=== PATIENT | female | born 1955 | race Caucasian/White ===

== ENCOUNTER → 2018-01-26 | Outpatient (CLI) | payer OTHER, SELFPAY ==
[~2018-01-26] MED LIST: ACET325 PO; Albuterol2.5 MG/0.5 INH; BENMENLOZ PO; BENZ100A PO; CEFP200 PO; Culturelle1 CAP PO; DOCU100 PO; DOXY100T53 PO; FIBER PO; FLUC100 PO; GUAIFENESIN-CODE5 ML PO; HYDR1TAB94 PO; HYDROCODONE; LEVO750 PO; LIDOCAINE HCL 2% PO; LORA.5 PO; METF500 PO; Mucinex600 MG PO; Norco 5-325 Ta1 EACH PO; OMEPRAZOLE MAGN20 MG PO; Omeprazole20 M1 PO; PROBIOTIC1 EAC3 PO; QUET100 PO; TRAZ100 PO
[2018-01-27 10:59] LABS: Candida species (DNA Probe) Negative (NEGATIVE); G. vaginalis (DNA Probe) Negative (NEGATIVE); T. vaginalis (DNA Probe) Negative (NEGATIVE)
== END ==
LOC: LAB 15:00 → LAB SHORT 15:00
PROVIDERS: Family Medicine
DX: N89.8 Other specified noninflammatory disorders of vagina (principal)
CPT/HCPCS: 87480; 87510; 87660

== ENCOUNTER → 2018-02-16 | Outpatient (CLI) | payer OTHER, SELFPAY | END | disposition home or self-care (01) | LOC: LAB SHORT 13:02 → PLD 13:02 | DX: D06.0 Carcinoma in situ of endocervix (principal); D06.1 Carcinoma in situ of exocervix | CPT/HCPCS: 88305 ==

== ENCOUNTER → 2019-04-25 | Outpatient (CLI) | payer MEDICARE, BC ==
[~2019-04-25] MED LIST changes: +Hair, Skin & N1 EACH PO; +IBUP800 PO; +METF850 PO; +PRAV20 PO; +Prozac20 MG PO; +QUET300 PO
[2019-04-29 14:06] LABS: HPV 16 Negative (Negative); HPV 18 Negative (Negative); HPV OTHER HR TYPES Negative (Negative)
== END | disposition home or self-care (01) ==
LOC: LAB 10:30 → LAB SHORT 10:30
PROVIDERS: Obstetrics & Gynecology
DX: Z09 Encounter for follow-up examination after completed treatment for conditions other than malignant neoplasm (principal); Z87.410 Personal history of cervical dysplasia
CPT/HCPCS: 87624; G0123

== ENCOUNTER → 2019-08-11 | Outpatient (CLI) | payer MEDICARE, BC ==
[2019-08-11 09:46] LABS: BASOPHILS ABSOLUTE AUTO 0.01 K/mm3 (0.00-0.23); BASOPHILS PERCENT AUTO 0 % (0-2); EOSINOPHILS ABSOLUTE AUTO 0.02 K/mm3 (0.00-0.68); EOSINOPHILS PERCENT AUTO 0 % (0-6); Hemoglobin 12.5 g/dL (11.5-16.0); IMMATURE GRAN ABSOLUTE AUTO 0.01 K/mm3 (0.00-0.10); IMMATURE GRAN PERCENT AUTO 0 % (0-1); LYMPHOCYTES ABSOLUTE AUTO 1.39 K/mm3 (0.84-5.20); LYMPHOCYTES PERCENT AUTO 20 % (21-46); MONOCYTES ABSOLUTE AUTO 0.56 K/mm3 (0.16-1.47); MONOCYTES PERCENT AUTO 8 % (4-13); Mean Corpuscular HGB 30.2 pg (26.0-34.0); Mean Corpuscular HGB Conc 31.3 g/dL (31.5-36.5); Mean Corpuscular Volume 97 fL (80-100); Mean Platelet Volume 9.7 fL (9.1-12.4); NEUTROPHILS ABSOLUTE AUTO 4.89 K/mm3 (1.96-9.15); NEUTROPHILS PERCENT AUTO 71 % (41-73); Platelet Count 127 K/mm3 (150-400); RDW Coefficient Variation 18.7 % (11.7-14.2); RDW Standard Deviation 66.4 fL (35.1-46.3); Red Blood Cell Count 4.14 M/mm3 (3.80-5.20); White Blood Cell Count 6.88 K/mm3 (4.00-11.30)
== END | disposition home or self-care (01) ==
LOC: LAB SHORT 08:45 → LAB 08:45
PROVIDERS: Emergency Medicine
DX: M54.2 Cervicalgia (principal); R50.9 Fever, unspecified
CPT/HCPCS: 85025

== ENCOUNTER → 2020-05-05 | Outpatient (CLI) | payer MEDICARE, BC ==
[2020-05-06 15:08] LABS: HPV 16 Negative (Negative); HPV 18 Negative (Negative); HPV OTHER HR TYPES Negative (Negative)
== END | disposition home or self-care (01) ==
LOC: OLS 10:00 → LAB SHORT 10:00
PROVIDERS: Obstetrics & Gynecology
DX: Z01.419 Encounter for gynecological examination (general) (routine) without abnormal findings (principal)
CPT/HCPCS: 87624; G0123

== ENCOUNTER 2020-06-17 06:38 | Day surgery (SDC) | payer MEDICARE, BC ==
[~2020-06-17] VITALS: Ht 154.9 cm; Wt 83.1 kg
[~2020-06-17 06:38] MED LIST changes: +AMLO5 PO; +Cymbalta20 MG PO; +METO25ER PO; +OMEP20ER PO; +Pravastatin Sod80 MG PO
--- NOTE | 2020-06-17 10:48 | NUR ---
11 CC OF AIR REMOVED OVER 10 MIN FROM NOW DEFLATED RIGHT TR BAND SITE. RIGHT RADIAL SITE SOFT NON-TENDER WITH NO HEMATOMA, NO PULSATILE BLEEDING AND WRIST BOARD IN PLACE. CALL LIGHT IN REACH.
--- NOTE | 2020-06-17 10:54 | NUR ---
NO CHANGES TO DEFLATED RIGHT TR BAND SITE.
--- NOTE | 2020-06-17 11:11 | NUR ---
ZEKE OCHOA RN REVIEWED DISCHARGE INSTRUCTIONS ALL QUESTIONS ANSWERED.
--- NOTE | 2020-06-17 11:37 | NUR ---
DEFLATED RIGHT TR BAND REMOVED AND POLYMEM PLACED OVER RIGHT RADIAL SITE WITH WRIST BOARD IN PLACE; NO HEMATOMA, NO PULSATILE BLEEDING, SOFT NON-TENDER. 20 G IV DISCONTINUED FROM LEFT AC WITH INTACT CANNULA. PT WILL BE ESCORTED OUT VIA WHEELCHAIR ESCORT.
== END 2020-06-17 11:45 | disposition home or self-care (01) ==
LOC: MHTC 06:38
PROC: B2111ZZ Fluoroscopy of Multiple Coronary Arteries using Low Osmolar Contrast (ICD-10-PCS; principal; 2020-06-17)
PROC: 4A023N7 Measurement of Cardiac Sampling and Pressure, Left Heart, Percutaneous Approach (ICD-10-PCS; principal; 2020-06-17)
DX: R07.9 Chest pain, unspecified (principal); R94.39 Abnormal result of other cardiovascular function study; I11.9 Hypertensive heart disease without heart failure; I08.2 Rheumatic disorders of both aortic and tricuspid valves; E66.9 Obesity, unspecified; E11.9 Type 2 diabetes mellitus without complications; G47.33 Obstructive sleep apnea (adult) (pediatric); E78.5 Hyperlipidemia, unspecified; F41.9 Anxiety disorder, unspecified; K21.9 Gastro-esophageal reflux disease without esophagitis; N87.9 Dysplasia of cervix uteri, unspecified; Z87.891 Personal history of nicotine dependence; Z79.84 Long term (current) use of oral hypoglycemic drugs; Z79.899 Other long term (current) drug therapy; Z68.34 Body mass index [BMI] 34.0-34.9, adult
CPT/HCPCS: 76937; 93005; 93010; 93458; 99152; C1769; C1894; J1644; J2250; J3010; J7030; J7050; Q9967

== ENCOUNTER → 2021-05-18 | Outpatient (CLI) | payer MEDICARE, BC ==
[2021-05-19 15:10] LABS: HPV 16 Negative (Negative); HPV 18 Negative (Negative); HPV OTHER HR TYPES Negative (Negative)
== END | disposition home or self-care (01) ==
LOC: LAB SHORT 09:48 → LAB 09:48
PROVIDERS: Obstetrics & Gynecology
DX: Z01.419 Encounter for gynecological examination (general) (routine) without abnormal findings (principal)
CPT/HCPCS: 87624; G0123

== ENCOUNTER 2022-04-09 03:03 | Emergency (ER) | payer MEDICARE, BC ==
[~2022-04-09] VITALS: Ht 152.4 cm; Wt 73.9 kg
[~2022-04-09 03:03] MED LIST changes: +DECADRON4 M1; +GABA100 PO; +MONT10T; +OLAN2.5 PO; +ONDA4 PO; +POTCIT10 PO; +THERA-D2000 UNIT PO
[2022-04-09] MEDS ORDERED: GABA300 PO (04:06)
== END 2022-04-09 05:20 | disposition home or self-care (01) ==
LOC: ER 03:03
DX: G25.81 Restless legs syndrome (principal); K21.9 Gastro-esophageal reflux disease without esophagitis; Z79.899 Other long term (current) drug therapy; Z79.84 Long term (current) use of oral hypoglycemic drugs
CPT/HCPCS: 99283; A9270

== ENCOUNTER 2022-05-21 07:52 | Emergency (ER) | payer MEDICARE, BC ==
[~2022-05-21] VITALS: Ht 152.4 cm; Wt 69.8 kg
[~2022-05-21 07:52] MED LIST changes: +GABA300 PO
[2022-05-21 09:49] LABS: Influenza A, PCR NEGATIVE (NEGATIVE); Influenza B, PCR NEGATIVE (NEGATIVE); Resp Syncytial Virus, PCR NEGATIVE (NEGATIVE); SARS-Cov-2 (COVID-19) PCR, MMC NEGATIVE (NEGATIVE)
[2022-05-21 10:17] LABS: BASOPHILS ABSOLUTE AUTO 0.01 K/mm3 (0.00-0.23); BASOPHILS PERCENT AUTO 0 % (0-2); EOSINOPHILS PERCENT AUTO 0 % (0-6); Hematocrit 23.5 % (33.0-51.0); Hemoglobin 7.6 g/dL (11.5-16.0); IMMATURE GRAN ABSOLUTE AUTO 0.03 K/mm3 (0.00-0.10); IMMATURE GRAN PERCENT AUTO 1 % (0-1); LYMPHOCYTES PERCENT AUTO 22 % (21-46); MONOCYTES ABSOLUTE AUTO 0.38 K/mm3 (0.16-1.47); MONOCYTES PERCENT AUTO 11 % (4-13); Mean Corpuscular HGB 32.1 pg (26.0-34.0); Mean Corpuscular HGB Conc 32.3 g/dL (31.5-36.5); Mean Corpuscular Volume 99 fL (80-100); Mean Platelet Volume 12.8 fL (9.1-12.4); NEUTROPHILS ABSOLUTE AUTO 2.36 K/mm3 (1.96-9.15); NEUTROPHILS PERCENT AUTO 66 % (41-73); RDW Coefficient Variation 19.9 % (11.7-14.2); RDW Standard Deviation 69.2 fL (35.1-46.3); Red Blood Cell Count 2.37 M/mm3 (3.80-5.20); White Blood Cell Count 3.58 K/mm3 (4.00-11.30)
[2022-05-21 10:31] LABS: Albumin, Blood 2.5 g/dL (3.4-5.0); Albumin/Globulin Ratio 0.7 (0.8-1.8); Bun/Creatinine Ratio 14.3 (12.0-20.0); Calcium, Blood 8.4 mg/dL (8.5-10.1); Creatinine, Blood 0.49 mg/dL (0.40-1.00); Globulin, Blood 3.7 g/dL (2.2-4.0); Potassium, Blood 2.9 mmol/L (3.5-5.5); Total Protein, Blood 6.2 g/dL (6.4-8.2)
[2022-05-21 10:41] LABS: Platelet Count 18 K/mm3 (150-400)
[2022-05-21] MEDS ORDERED: BENZ100A PO (12:03)
[2022-05-21] MEDS ORDERED: ALBU90OI INH (12:03)
== END 2022-05-21 12:38 | disposition home or self-care (01) ==
LOC: ER 07:52
PROVIDERS: Physician Assistant
DX: J06.9 Acute upper respiratory infection, unspecified (principal); D61.818 Other pancytopenia; E87.6 Hypokalemia; K21.9 Gastro-esophageal reflux disease without esophagitis; Z79.899 Other long term (current) drug therapy; Z79.84 Long term (current) use of oral hypoglycemic drugs; Z20.822 Contact with and (suspected) exposure to COVID-19
CPT/HCPCS: 0241U; 36415; 71046; 80053; 83690; 83880; 84484; 85025; 93005; 93010; A9270

== ENCOUNTER 2022-05-27 00:22 | Day surgery (SDC) | payer MEDICARE, BC ==
[2022-05-26 08:31] LABS: BASOPHILS ABSOLUTE AUTO 0.01 K/mm3 (0.00-0.23); BASOPHILS PERCENT AUTO 0 % (0-2); EOSINOPHILS PERCENT AUTO 0 % (0-6); Hematocrit 20.8 % (33.0-51.0); Hemoglobin 6.7 g/dL (11.5-16.0); IMMATURE GRAN ABSOLUTE AUTO 0.02 K/mm3 (0.00-0.10); IMMATURE GRAN PERCENT AUTO 1 % (0-1); LYMPHOCYTES ABSOLUTE AUTO 0.91 K/mm3 (0.84-5.20); LYMPHOCYTES PERCENT AUTO 33 % (21-46); MONOCYTES ABSOLUTE AUTO 0.23 K/mm3 (0.16-1.47); MONOCYTES PERCENT AUTO 8 % (4-13); Mean Corpuscular HGB 32.5 pg (26.0-34.0); Mean Corpuscular HGB Conc 32.2 g/dL (31.5-36.5); Mean Corpuscular Volume 101 fL (80-100); Mean Platelet Volume 12.3 fL (9.1-12.4); NEUTROPHILS PERCENT AUTO 58 % (41-73); RDW Coefficient Variation 20.3 % (11.7-14.2); RDW Standard Deviation 71.8 fL (35.1-46.3); Red Blood Cell Count 2.06 M/mm3 (3.80-5.20); White Blood Cell Count 2.77 K/mm3 (4.00-11.30)
[2022-05-26 08:39] LABS: Platelet Count 19 K/mm3 (150-400)
[~2022-05-27 00:22] MED LIST changes: +ALBU90OI INH
== END 2022-05-27 10:09 | disposition home or self-care (01) ==
LOC: ATC 00:22
PROVIDERS: Internal Medicine Hematology & Oncology
DX: C50.412 Malignant neoplasm of upper-outer quadrant of left female breast (principal); Z87.891 Personal history of nicotine dependence; E78.5 Hyperlipidemia, unspecified; K21.9 Gastro-esophageal reflux disease without esophagitis; F41.9 Anxiety disorder, unspecified
CPT/HCPCS: 36415; 36430; 85025; 86850; 86900; 86901; 86923; J7040; P9016

== ENCOUNTER 2022-07-08 08:09 | Day surgery (SDC) | payer MEDICARE, BC ==
[~2022-07-08] VITALS: Ht 154.9 cm; Wt 69.4 kg
[2022-07-08] MEDS ORDERED: ATORVASTATIN CA80 M1 PO (10:03)
[2022-07-08] MEDS ORDERED: VENL75ER PO (10:05)
--- NOTE | 2022-07-08 15:02 | NUR ---
07/08/22 1502 Maria Isabel Klein AND JARED TO CHEST. JANY DRAIN X2, ONE TO LEFT CHEST AND ONE TO RIGHT CHEST. JARED NOTED TO HAVE BRIGHT RED BLOOD SEEPING THROUGH THAT WAS NOT THERE UPON ARRIVAL TO PACU. RN CALLED DR GREER AND NOTIFIED OF BLEEDING. INSTRUCTED PER DR GREER TO PLACE MORE 4X4 GAUZE AND APPLY PRESSURE.
--- NOTE | 2022-07-08 16:38 | NUR ---
07/08/22 1638 SOURAV RICHARD 5/325 PO AND 50MCG FENTANYL IVPB ADMIN TO PT IN STEPDOWN.RDS
== END 2022-07-08 16:33 | disposition home or self-care (01) ==
LOC: ORSCSDS 08:09 → NM 09:30 → ORSCSDS 09:30
PROVIDERS: Surgery
PROC: 07B60ZX Excision of Left Axillary Lymphatic, Open Approach, Diagnostic (ICD-10-PCS; principal; 2022-07-08 10:30)
PROC: 0HBT0ZZ Excision of Right Breast, Open Approach (ICD-10-PCS; principal; 2022-07-08 10:30)
PROC: 0HBU0ZZ Excision of Left Breast, Open Approach (ICD-10-PCS; principal; 2022-07-08 10:30)
DX: C50.012 Malignant neoplasm of nipple and areola, left female breast (principal); D36.0 Benign neoplasm of lymph nodes; Z17.1 Estrogen receptor negative status [ER-]; E11.9 Type 2 diabetes mellitus without complications; Z85.3 Personal history of malignant neoplasm of breast; G47.33 Obstructive sleep apnea (adult) (pediatric); I10 Essential (primary) hypertension; E78.5 Hyperlipidemia, unspecified; K76.0 Fatty (change of) liver, not elsewhere classified; F41.9 Anxiety disorder, unspecified; Z79.899 Other long term (current) drug therapy; Z79.82 Long term (current) use of aspirin; Z79.84 Long term (current) use of oral hypoglycemic drugs; Z87.891 Personal history of nicotine dependence
CPT/HCPCS: 38792; 82947; 88307; 88341; 88342; 88360; A9270; A9520; J0690; J1100; J2250; J2405; J2704; J2795; J3010; J7120; Q9968

== ENCOUNTER 2022-07-16 16:28 | Inpatient (IN) | payer MEDICARE, BC ==
[~2022-07-16] VITALS: Ht 154.9 cm; Wt 83.7 kg
[~2022-07-16 16:28] MED LIST changes: +ATORVASTATIN CA80 M1 PO; +VENL75ER PO
[2022-07-16 17:34] LABS: BASOPHILS ABSOLUTE AUTO 0.03 K/mm3 (0.00-0.23); BASOPHILS PERCENT AUTO 0 % (0-2); EOSINOPHILS ABSOLUTE AUTO 0.09 K/mm3 (0.00-0.68); EOSINOPHILS PERCENT AUTO 1 % (0-6); Hemoglobin 6.7 g/dL (11.5-16.0); IMMATURE GRAN ABSOLUTE AUTO 0.04 K/mm3 (0.00-0.10); IMMATURE GRAN PERCENT AUTO 0 % (0-1); LYMPHOCYTES ABSOLUTE AUTO 2.41 K/mm3 (0.84-5.20); LYMPHOCYTES PERCENT AUTO 24 % (21-46); MONOCYTES ABSOLUTE AUTO 0.89 K/mm3 (0.16-1.47); MONOCYTES PERCENT AUTO 9 % (4-13); Mean Corpuscular HGB 35.8 pg (26.0-34.0); Mean Corpuscular HGB Conc 31.9 g/dL (31.5-36.5); Mean Corpuscular Volume 112 fL (80-100); Mean Platelet Volume 10.4 fL (9.1-12.4); NEUTROPHILS ABSOLUTE AUTO 6.57 K/mm3 (1.96-9.15); NEUTROPHILS PERCENT AUTO 66 % (41-73); NRBC ABSOLUTE 0.02 K/mm3 (0.00-0.02); NRBC Auto 0.2 /100 WBC (0.0-0.2); Platelet Count 157 K/mm3 (150-400); RDW Coefficient Variation 17.9 % (11.7-14.2); RDW Standard Deviation 73.2 fL (35.1-46.3); Red Blood Cell Count 1.87 M/mm3 (3.80-5.20); White Blood Cell Count 10.03 K/mm3 (4.00-11.30)
[2022-07-16 18:24] LABS: Albumin/Globulin Ratio 0.6 (0.8-1.8); Bilirubin, Total 2.2 mg/dL (0.1-1.0); Bun/Creatinine Ratio 14.5 (12.0-20.0); Calcium, Blood 7.9 mg/dL (8.5-10.1); Creatinine, Blood 0.69 mg/dL (0.40-1.00); Globulin, Blood 3.6 g/dL (2.2-4.0); Potassium, Blood 3.5 mmol/L (3.5-5.5); Total Protein, Blood 5.6 g/dL (6.4-8.2)
[2022-07-17 00:13] LABS: International Normalized Ratio 1.27; Prothrombin Time Results 13.1 Sec (9.7-11.5)
[2022-07-17 01:23] LABS: Hemoglobin 7.2 g/dL (11.5-16.0)
[2022-07-17 01:34] LABS: Hematocrit 21.4 % (33.0-51.0)
[2022-07-17 05:58] LABS: BASOPHILS ABSOLUTE AUTO 0.02 K/mm3 (0.00-0.23); BASOPHILS PERCENT AUTO 0 % (0-2); EOSINOPHILS ABSOLUTE AUTO 0.04 K/mm3 (0.00-0.68); EOSINOPHILS PERCENT AUTO 1 % (0-6); Hemoglobin 6.3 g/dL (11.5-16.0); IMMATURE GRAN ABSOLUTE AUTO 0.03 K/mm3 (0.00-0.10); IMMATURE GRAN PERCENT AUTO 0 % (0-1); LYMPHOCYTES ABSOLUTE AUTO 0.69 K/mm3 (0.84-5.20); LYMPHOCYTES PERCENT AUTO 9 % (21-46); MONOCYTES ABSOLUTE AUTO 0.32 K/mm3 (0.16-1.47); MONOCYTES PERCENT AUTO 4 % (4-13); Mean Platelet Volume 9.7 fL (9.1-12.4); NEUTROPHILS ABSOLUTE AUTO 6.92 K/mm3 (1.96-9.15); NEUTROPHILS PERCENT AUTO 86 % (41-73); Platelet Count 80 K/mm3 (150-400); White Blood Cell Count 8.02 K/mm3 (4.00-11.30)
[2022-07-17 06:02] LABS: Hematocrit 18.9 % (33.0-51.0); Mean Corpuscular HGB 33.7 pg (26.0-34.0); Mean Corpuscular HGB Conc 33.3 g/dL (31.5-36.5); Mean Corpuscular Volume 101 fL (80-100); Red Blood Cell Count 1.87 M/mm3 (3.80-5.20)
[2022-07-17 06:22] LABS: Albumin, Blood 2.3 g/dL (3.4-5.0); Albumin/Globulin Ratio 0.8 (0.8-1.8); Bilirubin, Total 3.3 mg/dL (0.1-1.0); Bun/Creatinine Ratio 21.1 (12.0-20.0); Calcium, Blood 7.3 mg/dL (8.5-10.1); Creatinine, Blood 0.62 mg/dL (0.40-1.00); Globulin, Blood 2.8 g/dL (2.2-4.0); Potassium, Blood 3.8 mmol/L (3.5-5.5); Total Protein, Blood 5.1 g/dL (6.4-8.2)
--- NOTE | 2022-07-17 06:35 | NUR ---
PUT A CALL OUT TO DR ARENAS REGARDING HGB 6.3. AWAITING CALLBACK
--- NOTE | 2022-07-17 07:32 | NUR ---
PATIENT ARRIVED FROM ED AT 0125. PATIENT IN MODERATE TO SEVERE PAIN. LEFT AND RIGHT JANY DRAINS. LEFT BREAST AREA ECCHYMOTTIC AND SWOLLEN. ALERT AND ORIENTED, ROOM AIR, NO TELE, TWO PATENT IV SITES. HGB 6.[address] ARENAS CALLED AND 1 UNIT PRBC ORDER GIVEN.
--- NOTE | 2022-07-17 09:37 | NUR ---
called to bedside. Pt hgb 6.3. Physician will put in orders.
[2022-07-17 14:53] LABS: Hematocrit 21.6 % (33.0-51.0); Hemoglobin 7.5 g/dL (11.5-16.0)
[2022-07-17 20:31] LABS: Hematocrit 21.3 % (33.0-51.0); Hemoglobin 7.3 g/dL (11.5-16.0)
--- NOTE | 2022-07-17 22:44 | NUR ---
FOLY CATH PLACED BY MARY WALTERS .Jamil YOUSSEF ASSISTED
[2022-07-18 02:50] LABS: Hematocrit 18.9 % (33.0-51.0); Hemoglobin 6.5 g/dL (11.5-16.0); Mean Corpuscular HGB 33.2 pg (26.0-34.0); Mean Corpuscular HGB Conc 34.4 g/dL (31.5-36.5); Mean Platelet Volume 9.6 fL (9.1-12.4); Platelet Count 86 K/mm3 (150-400); RDW Coefficient Variation 24.2 % (11.7-14.2); RDW Standard Deviation 80.3 fL (35.1-46.3); Red Blood Cell Count 1.96 M/mm3 (3.80-5.20); White Blood Cell Count 5.84 K/mm3 (4.00-11.30)
[2022-07-18 02:53] LABS: Mean Corpuscular Volume 96 fL (80-100)
--- NOTE | 2022-07-18 04:33 | NUR ---
CALL OUT TO JASON CLARK) REGARDING HGB RESULTS
[2022-07-18 06:00] LABS: Albumin, Blood 1.7 g/dL (3.4-5.0); Albumin/Globulin Ratio 0.6 (0.8-1.8); Bilirubin, Total 3.2 mg/dL (0.1-1.0); Calcium, Blood 7.2 mg/dL (8.5-10.1); Creatinine, Blood 0.59 mg/dL (0.40-1.00); Globulin, Blood 2.8 g/dL (2.2-4.0); Potassium, Blood 3.6 mmol/L (3.5-5.5); Total Protein, Blood 4.5 g/dL (6.4-8.2)
[2022-07-18 09:10] LABS: Hematocrit 23.7 % (33.0-51.0); Hemoglobin 8.1 g/dL (11.5-16.0)
--- NOTE | 2022-07-18 18:36 | NUR ---
PATIENT A/OX4, CALM AND COOPERATIVE WITH CARE. DR. GREER CAME TO SEE PATIENT TODAY, NO PLANS FOR SURGICAL INTERVENTION. STERISTRIPS TO CHEST REMAIN C/D/I. L JANY DRAIN PUTING UT BLOODY DRAINAGE AND R JANY WITH LESSER AMOUNT OF SEROSANQUINOUS DRAINAGE. VSS, ON RA. TOLERATING ADA DIET. ACHS BLOOD SUGARS, NO COVERAGE NEEDED THIS SHIFT. PAIN BETTER CONTROLLED WITH INCREASED FREQUENCY OF OXYCODONE, NO FENTANYL NEEDED FOR BREAKTHROUGH THIS AFTERNOON. NO NEW CONCERNS THIS SHIFT.
--- NOTE | 2022-07-19 07:10 | NUR ---
PT RESTING IN BED NO S/S OF ACUTE DISTRESS, SAFETY MEASURES IN PLACE REPORT GIVEN TO ON COMING NURSE
[2022-07-19 08:28] LABS: Hematocrit 23.9 % (33.0-51.0); Hemoglobin 8.3 g/dL (11.5-16.0); Mean Corpuscular HGB 33.1 pg (26.0-34.0); Mean Corpuscular HGB Conc 34.7 g/dL (31.5-36.5); Mean Corpuscular Volume 95 fL (80-100); Mean Platelet Volume 9.4 fL (9.1-12.4); Platelet Count 83 K/mm3 (150-400); RDW Coefficient Variation 22.4 % (11.7-14.2); RDW Standard Deviation 76.2 fL (35.1-46.3); Red Blood Cell Count 2.51 M/mm3 (3.80-5.20); White Blood Cell Count 5.12 K/mm3 (4.00-11.30)
[2022-07-19] MEDS ORDERED: MIRALAX17 GM PO (12:27)
[2022-07-19] MEDS ORDERED: DOCU100 PO (12:27)
--- NOTE | 2022-07-19 18:40 | NUR ---
PATIENT A/OX4, UP TODAY WITH 1 ASSIST. D/C ORDERS PLACED, BUT PAIN REMAINED UNCONTROLLED SO PATIENT WANTED TO STAY ANOTHER NIGHT. CHANGED FROM OXYCODONE TO NORCO Q4 HOURS, FENTANYL USED X1 FOR BREAKTHROUGH PAIN. JANY DRAINS TO L/R CHEST. MINIMAL SEROSANQUINOUS DRAININGE FROM R JANY, 70ML OF BLOODY DRAINAGE OUT FROM L JANY. INCISION TO CHEST OPEN TO AIR WITH STERISTRIPS IN PLACE, NO S/S OF INFECTION. TOLERATING DIET. CALLS APPROPRIATELY FOR ASSISTANCE.
--- NOTE | 2022-07-20 14:55 | NUR ---
PATIENT D/C'D TO HOME WITH SPOUSE. DC INSTRUCTIONS AND EDUCATION DISCUSSED WITH PATIENT AND COPY PROVIDED. HARD SCRIPT FOR NORCO GIVEN TO PATIENT. CHERRY PULLED PRIOR TO D/C. PATIENT TO FOLLOW UP WITH DR GREER OUTPATIENT. PATIENT DENIES ANY FURTHER QUESTIONS OR CONCERNS.
== END 2022-07-20 15:05 | disposition home or self-care (01) | DRG 920 ==
LOC: ER 16:28 → ERHOLD 22:30 → MEDS 22:30 → ENPENDDIS 07-19 16:25 → MEDS 07-20 15:05
PROVIDERS: Internal Medicine; Nurse Practitioner Acute Care; Physician Assistant; ADMIT Internal Medicine
PROC: 30233N1 Transfusion of Nonautologous Red Blood Cells into Peripheral Vein, Percutaneous Approach (ICD-10-PCS; principal; 2022-07-17)
DX: L76.32 Postprocedural hematoma of skin and subcutaneous tissue following other procedure (principal); D62 Acute posthemorrhagic anemia; E87.20 Acidosis, unspecified; C50.912 Malignant neoplasm of unspecified site of left female breast; K21.9 Gastro-esophageal reflux disease without esophagitis; Z90.49 Acquired absence of other specified parts of digestive tract; Z90.13 Acquired absence of bilateral breasts and nipples; Z98.890 Other specified postprocedural states; Y83.8 Other surgical procedures as the cause of abnormal reaction of the patient, or of later complication, without mention of misadventure at the time of the procedure; Z87.891 Personal history of nicotine dependence; Z92.21 Personal history of antineoplastic chemotherapy; Z92.3 Personal history of irradiation; Z28.21 Immunization not carried out because of patient refusal
CPT/HCPCS: 36415; 36430; 71260; 80053; 82947; 83036; 83605; 83690; 83880; 85014; 85018; 85025; 85027; 85610; 86850; 86900; 86901; 86923; 96361; 96365-59; 96375; 96375-59; 96376; 96376-59; 99285-25; A9270; G0378; J0690; J2405; J3010; J7030; P9016; P9047; Q9967

== ENCOUNTER → 2022-08-05 | Outpatient (CLI) | payer MEDICARE, BC ==
[~2022-08-05] MED LIST changes: +MIRALAX17 GM PO
[2022-08-05 11:21] LABS: Adenovirus F 40/41 Not Detected (NOT DETECT); Astrovirus Not Detected (NOT DETECT); Campylobacter Sp Not Detected (NOT DETECT); Cryptosporidium Not Detected (NOT DETECT); Cyclospora Cayetanensis Not Detected (NOT DETECT); E. Coli O157 Not Detected (NOT DETECT); Entamoeba Histolytica Not Detected (NOT DETECT); Enteroaggregative E. coli-EAEC Detected (NOT DETECT); Enteropathogenic E. coli-EPEC Not Detected (NOT DETECT); Enterotoxigenic E. coli-ETEC Not Detected (NOT DETECT); Giardia Lamblia Not Detected (NOT DETECT); Norovirus GI/GII Not Detected (NOT DETECT); Plesiomonas Shigelloides Not Detected (NOT DETECT); Rotavirus A Not Detected (NOT DETECT); Salmonella Sp Not Detected (NOT DETECT); Shiga Toxin-prod E. coli-STEC Not Detected (NOT DETECT); Shigella/Enteroin E. coli-EIEC Not Detected (NOT DETECT); Vibrio Cholerae Not Detected (NOT DETECT); Vibrio Sp Not Detected (NOT DETECT); Yersinia Enterocolitica Not Detected (NOT DETECT)
[2022-08-05 11:22] LABS: Sapovirus Not Detected (NOT DETECT)
== END | disposition home or self-care (01) ==
LOC: LAB SHORT 08:32 → LAB 08:32
PROVIDERS: Family Medicine
DX: D64.9 Anemia, unspecified (principal); R19.7 Diarrhea, unspecified
CPT/HCPCS: 87507

== ENCOUNTER 2022-10-19 12:31 | Emergency (ER) | payer MEDICARE, BC ==
[~2022-10-19] VITALS: Ht 154.9 cm; Wt 59.0 kg
[2022-10-19 13:13] LABS: BASOPHILS ABSOLUTE AUTO 0.01 K/mm3 (0.00-0.23); BASOPHILS PERCENT AUTO 0 % (0-2); EOSINOPHILS ABSOLUTE AUTO 0.03 K/mm3 (0.00-0.68); EOSINOPHILS PERCENT AUTO 1 % (0-6); Hematocrit 29.8 % (33.0-51.0); Hemoglobin 9.7 g/dL (11.5-16.0); IMMATURE GRAN PERCENT AUTO 0 % (0-1); LYMPHOCYTES ABSOLUTE AUTO 0.62 K/mm3 (0.84-5.20); LYMPHOCYTES PERCENT AUTO 25 % (21-46); MONOCYTES ABSOLUTE AUTO 0.27 K/mm3 (0.16-1.47); MONOCYTES PERCENT AUTO 11 % (4-13); Mean Corpuscular HGB 33.9 pg (26.0-34.0); Mean Corpuscular HGB Conc 32.6 g/dL (31.5-36.5); Mean Corpuscular Volume 104 fL (80-100); Mean Platelet Volume 10.1 fL (9.1-12.4); NEUTROPHILS ABSOLUTE AUTO 1.57 K/mm3 (1.96-9.15); NEUTROPHILS PERCENT AUTO 63 % (41-73); Platelet Count 79 K/mm3 (150-400); RDW Coefficient Variation 17.2 % (11.7-14.2); RDW Standard Deviation 66.4 fL (35.1-46.3); Red Blood Cell Count 2.86 M/mm3 (3.80-5.20)
[2022-10-19 13:38] LABS: Albumin/Globulin Ratio 0.6 (0.8-1.8); Bilirubin, Total 0.9 mg/dL (0.1-1.0); Bun/Creatinine Ratio 29.9 (12.0-20.0); Calcium, Blood 9.4 mg/dL (8.5-10.1); Creatinine, Blood 0.77 mg/dL (0.40-1.00); Globulin, Blood 4.8 g/dL (2.2-4.0); Potassium, Blood 3.3 mmol/L (3.5-5.5); Total Protein, Blood 7.8 g/dL (6.4-8.2)
== END 2022-10-19 17:55 | disposition home or self-care (01) ==
LOC: ER 12:31
PROVIDERS: Physician Assistant
DX: S00.83XA Contusion of other part of head, initial encounter (principal); W18.30XA Fall on same level, unspecified, initial encounter; E87.6 Hypokalemia; C50.919 Malignant neoplasm of unspecified site of unspecified female breast
CPT/HCPCS: 36415; 70450; 80053; 83735; 85025; 96360; 96361; 99284-25; A9270; J7030

== ENCOUNTER 2023-04-19 09:54 | Day surgery (SDC) | payer MEDICARE, BC ==
[~2023-04-19] VITALS: Ht 154.9 cm; Wt 73.4 kg
[2023-04-19] MEDS ORDERED: DULO60 (10:20)
[2023-04-19 11:50] VITALS: BP 125/62
--- NOTE | 2023-04-19 11:55 | NUR ---
04/19/23 1155 Daria Mcneal 8 ML
== END 2023-04-19 12:17 | disposition home or self-care (01) ==
LOC: ORSCSDS 09:54
PROVIDERS: Internal Medicine Gastroenterology
PROC: 0DBE8ZX Excision of Large Intestine, Via Natural or Artificial Opening Endoscopic, Diagnostic (ICD-10-PCS; principal; 2023-04-19 11:15)
PROC: 0DBN8ZX Excision of Sigmoid Colon, Via Natural or Artificial Opening Endoscopic, Diagnostic (ICD-10-PCS; principal; 2023-04-19 11:15)
PROC: 0D757ZZ Dilation of Esophagus, Via Natural or Artificial Opening (ICD-10-PCS; principal; 2023-04-19 11:15)
PROC: 0DB78ZX Excision of Stomach, Pylorus, Via Natural or Artificial Opening Endoscopic, Diagnostic (ICD-10-PCS; principal; 2023-04-19 11:15)
DX: K21.9 Gastro-esophageal reflux disease without esophagitis (principal); K74.60 Unspecified cirrhosis of liver; R93.3 Abnormal findings on diagnostic imaging of other parts of digestive tract; K76.0 Fatty (change of) liver, not elsewhere classified; R19.4 Change in bowel habit; K22.2 Esophageal obstruction; K29.70 Gastritis, unspecified, without bleeding; Z85.3 Personal history of malignant neoplasm of breast; G47.33 Obstructive sleep apnea (adult) (pediatric); E78.5 Hyperlipidemia, unspecified; I10 Essential (primary) hypertension; Z87.891 Personal history of nicotine dependence; E03.9 Hypothyroidism, unspecified; E11.9 Type 2 diabetes mellitus without complications; Z79.899 Other long term (current) drug therapy; Z79.84 Long term (current) use of oral hypoglycemic drugs; Z85.828 Personal history of other malignant neoplasm of skin
CPT/HCPCS: 82947; 88305; 88342; C1726; J2704; J7120

== ENCOUNTER → 2023-05-04 | Outpatient (CLI) | payer MEDICARE, BC ==
[~2023-05-04] MED LIST changes: +DULO60
== END ==
LOC: LAB SHORT 12:27 → PLD 12:27 → LAB 12:27
DX: D48.5 Neoplasm of uncertain behavior of skin (principal)
CPT/HCPCS: 88304

== ENCOUNTER → 2023-05-23 | Outpatient (CLI) | payer MEDICARE, BC | LOC: LAB SHORT 08:23 → LAB 08:23 | DX: C44.612 Basal cell carcinoma of skin of right upper limb, including shoulder (principal) | CPT/HCPCS: 88305 ==

== ENCOUNTER → 2023-06-20 | Outpatient (CLI) | payer MEDICARE, BC ==
[2023-06-30 03:42] LABS: HPV GENOTYPE 16 Not Detected; HPV GENOTYPE 18 Not Detected; HPV HIGH RISK Not Detected; HPV SOURCE Vaginal
== END ==
LOC: LAB SHORT 15:38 → LAB 15:38
PROVIDERS: Obstetrics & Gynecology
DX: Z01.419 Encounter for gynecological examination (general) (routine) without abnormal findings (principal)
CPT/HCPCS: 87624; G0123

== ENCOUNTER 2023-08-07 11:33 | Emergency (ER) | payer MEDICARE, BC ==
[~2023-08-07] VITALS: Ht 154.9 cm; Wt 68.0 kg
[2023-08-07 12:08] LABS: BASOPHILS ABSOLUTE AUTO 0.02 K/mm3 (0.00-0.23); BASOPHILS PERCENT AUTO 0 % (0-2); EOSINOPHILS ABSOLUTE AUTO 0.05 K/mm3 (0.00-0.68); EOSINOPHILS PERCENT AUTO 1 % (0-6); Hematocrit 35.9 % (33.0-51.0); IMMATURE GRAN ABSOLUTE AUTO 0.02 K/mm3 (0.00-0.10); IMMATURE GRAN PERCENT AUTO 0 % (0-1); LYMPHOCYTES ABSOLUTE AUTO 0.83 K/mm3 (0.84-5.20); LYMPHOCYTES PERCENT AUTO 16 % (21-46); MONOCYTES ABSOLUTE AUTO 0.57 K/mm3 (0.16-1.47); MONOCYTES PERCENT AUTO 11 % (4-13); Mean Corpuscular HGB 32.3 pg (26.0-34.0); Mean Corpuscular HGB Conc 33.4 g/dL (31.5-36.5); Mean Corpuscular Volume 97 fL (80-100); Mean Platelet Volume 9.6 fL (9.1-12.4); NEUTROPHILS PERCENT AUTO 71 % (41-73); Platelet Count 142 K/mm3 (150-400); RDW Coefficient Variation 15.8 % (11.7-14.2); RDW Standard Deviation 56.2 fL (35.1-46.3); Red Blood Cell Count 3.71 M/mm3 (3.80-5.20); White Blood Cell Count 5.19 K/mm3 (4.00-11.30)
[2023-08-07 12:31] LABS: Albumin, Blood 2.6 g/dL (3.4-5.0); Albumin/Globulin Ratio 0.5 (0.8-1.8); Bilirubin, Total 2.8 mg/dL (0.1-1.0); Bun/Creatinine Ratio 9.5 (12.0-20.0); Calcium, Blood 8.8 mg/dL (8.5-10.1); Creatinine, Blood 0.53 mg/dL (0.40-1.00); Potassium, Blood 3.3 mmol/L (3.5-5.5); Total Protein, Blood 7.6 g/dL (6.4-8.2)
[2023-08-07 18:29] VITALS: BP 153/75
[2023-08-07] MEDS ORDERED: OXYC5 PO (19:11)
[2023-08-07] MEDS ORDERED: ONDA4ODT MM (19:11)
== END 2023-08-07 19:25 | disposition home or self-care (01) ==
LOC: ER 11:33
PROVIDERS: Physician Assistant
DX: C79.89 Secondary malignant neoplasm of other specified sites (principal); C50.919 Malignant neoplasm of unspecified site of unspecified female breast; K21.9 Gastro-esophageal reflux disease without esophagitis; Z79.899 Other long term (current) drug therapy
CPT/HCPCS: 70481; 80053; 85025; 96374-59; 96375; 96376; 99284-25; J1170; J2405; Q9967

== ENCOUNTER 2023-08-30 12:35 | Inpatient (IN) | payer MEDICARE, BC ==
[~2023-08-30] VITALS: Ht 154.9 cm; Wt 69.4 kg
[~2023-08-30 12:35] MED LIST changes: -DULO60; +DULO60 PO; +ONDA4ODT MM; +OXYC5 PO; +Seroquel Xr50 MG PO
[2023-08-30 13:23] LABS: BASOPHILS ABSOLUTE AUTO 0.01 K/mm3 (0.00-0.23); BASOPHILS PERCENT AUTO 0 % (0-2); EOSINOPHILS PERCENT AUTO 0 % (0-6); Hematocrit 41.4 % (33.0-51.0); Hemoglobin 13.5 g/dL (11.5-16.0); IMMATURE GRAN ABSOLUTE AUTO 0.06 K/mm3 (0.00-0.10); IMMATURE GRAN PERCENT AUTO 1 % (0-1); LYMPHOCYTES PERCENT AUTO 2 % (21-46); MONOCYTES ABSOLUTE AUTO 0.54 K/mm3 (0.16-1.47); MONOCYTES PERCENT AUTO 5 % (4-13); Mean Corpuscular HGB 32.5 pg (26.0-34.0); Mean Corpuscular HGB Conc 32.6 g/dL (31.5-36.5); Mean Corpuscular Volume 100 fL (80-100); Mean Platelet Volume 11.1 fL (9.1-12.4); NEUTROPHILS ABSOLUTE AUTO 10.58 K/mm3 (1.96-9.15); NEUTROPHILS PERCENT AUTO 93 % (41-73); Platelet Count 81 K/mm3 (150-400); RDW Coefficient Variation 17.4 % (11.7-14.2); RDW Standard Deviation 64.3 fL (35.1-46.3); Red Blood Cell Count 4.15 M/mm3 (3.80-5.20); White Blood Cell Count 11.39 K/mm3 (4.00-11.30)
[2023-08-30 13:47] LABS: Albumin, Blood 2.5 g/dL (3.4-5.0); Albumin/Globulin Ratio 0.7 (0.8-1.8); Bilirubin, Total 1.8 mg/dL (0.1-1.0); Bun/Creatinine Ratio 43.9 (12.0-20.0); Calcium, Blood 8.8 mg/dL (8.5-10.1); Creatinine, Blood 1.14 mg/dL (0.40-1.00); Globulin, Blood 3.6 g/dL (2.2-4.0); Potassium, Blood 5.1 mmol/L (3.5-5.5); Total Protein, Blood 6.1 g/dL (6.4-8.2)
[2023-08-30 13:59] LABS: Influenza A, PCR NEGATIVE (NEGATIVE); Influenza B, PCR NEGATIVE (NEGATIVE); Resp Syncytial Virus, PCR NEGATIVE (NEGATIVE); SARS-Cov-2 (COVID-19) PCR, MMC NEGATIVE (NEGATIVE)
[2023-08-30 14:00] LABS: Source, Urine Clean Catch
[2023-08-30 14:07] LABS: Appearance, Urine Clear (Clear); Blood, Urine Neg (Neg); Color, Urine Yellow (P-Yellow); Glucose Qualitative, Urine Neg (Neg); Ketones, Urine Neg (Neg); Leukocyte Esterase, Urine Neg (Neg); Nitrite, Urine Neg (Neg); Protein, Urine 1+ (Neg); Specific Gravity, Urine 1.025 (1.003-1.022); Urobilinogen, Urine NORM (Normal)
[2023-08-30 14:23] LABS: Bilirubin, Urine 1+ (Neg)
[2023-08-30] MEDS ORDERED: NS 1,000 ML IV SCH ×2 (14:35→17:50)
[2023-08-30] MEDS ORDERED: Morphine Sulfate 4 MG/1 ML Injection IV PRN (14:35)
[2023-08-30] MEDS ORDERED: DiphenhydrAMINE HCl 50 MG/ML 1ML Vial IV ONE (14:35)
[2023-08-30] MEDS ORDERED: Metoclopramide HCl 5MG / ML 2ML Vial IV ONE (14:35)
[2023-08-30 15:50] LABS: Base Excess Venous -3.6 mmol/L; Bicarbonate Venous 21.9 mmol/L (24.0-30.0); PCO2 Venous 35.5 mmHg (38-42); pH Blood Venous 7.39 (7.34-7.37)
[2023-08-30] MEDS ORDERED: Dexamethasone Sod Phos 10 MG/ML 1ML VIAL IV ONE (16:55)
[2023-08-30] MEDS ORDERED: Ondansetron HCl 2 MG / ML 2ML Vial IV PRN (17:50)
[2023-08-30] MEDS ORDERED: FLU VACC QS2023-24(6MOS UP)/PF 60 MCG/0.5 ML SYRINGE IM SCH (17:50)
[2023-08-30] MEDS ORDERED: Lactulose 20 GM/30 ML UDC PO SCH (18:00)
[2023-08-30 18:31] LABS: International Normalized Ratio 1.05
[2023-08-30] MEDS ORDERED: METFORMIN HCL500 M3 PO (21:22)
[2023-08-30 21:24] VITALS: BP 149/59
[2023-08-30] MEDS ORDERED: SPIRONOLACTONE50 MG PO (21:24)
[2023-08-30] MEDS ORDERED: FUROSEMIDE20 MG PO (21:24)
[2023-08-30] MEDS ORDERED: SULFAMETHOXAZO1 EAC1 PO (21:26)
[2023-08-30] MEDS ORDERED: GLIP5ER PO (21:29)
[2023-08-30] MEDS ORDERED: DEXA4 PO (21:30)
[2023-08-30] MEDS ORDERED: Dilaudid 2 mg Ta2 MG PO (21:32)
[2023-08-31 03:20] VITALS: BP 161/69
--- NOTE | 2023-08-31 04:46 | NUR ---
2110: ASSUMED CARE OF PT, REPORT RECEIVED FROM MARY MCCLELLAND IN THE ED. PT ARRIVED TO THE UNIT VIA BED. THREE PERSON TRANSFER TO BED. PT IS A/O WITH CONFUSION AND HALLUCINATIONS. BREATHING IS EVEN AND UNLABORED ON ROOM AIR. PT IS ABLE TO MAKE NEEDS KNOWN. 1-2 PERSON ASSIST TO BSC. PT HAD >6 LARGE LOOSE TO LIQUID STOOLS DURING THE SHIFT AFTER TWO DOSES OF LACTULOSE. FLUIDS RUNNING TO LEFT AC PIV ORDERED. NO FURTHER ACUTE EVENTS DURING THE SHIFT. BED ALARM IN PLACE, SAFETY MEASURES TAKEN. ALL NEEDS ADDRESSED DURING THE SHIFT.
[2023-08-31 05:33] LABS: BASOPHILS ABSOLUTE AUTO 0.01 K/mm3 (0.00-0.23); BASOPHILS PERCENT AUTO 0 % (0-2); EOSINOPHILS PERCENT AUTO 0 % (0-6); Hematocrit 39.7 % (33.0-51.0); Hemoglobin 13.2 g/dL (11.5-16.0); IMMATURE GRAN ABSOLUTE AUTO 0.05 K/mm3 (0.00-0.10); IMMATURE GRAN PERCENT AUTO 1 % (0-1); LYMPHOCYTES ABSOLUTE AUTO 0.12 K/mm3 (0.84-5.20); LYMPHOCYTES PERCENT AUTO 1 % (21-46); MONOCYTES ABSOLUTE AUTO 0.43 K/mm3 (0.16-1.47); MONOCYTES PERCENT AUTO 4 % (4-13); Mean Corpuscular HGB 32.8 pg (26.0-34.0); Mean Corpuscular HGB Conc 33.2 g/dL (31.5-36.5); Mean Corpuscular Volume 99 fL (80-100); Mean Platelet Volume 9.9 fL (9.1-12.4); NEUTROPHILS ABSOLUTE AUTO 10.07 K/mm3 (1.96-9.15); NEUTROPHILS PERCENT AUTO 94 % (41-73); Platelet Count 70 K/mm3 (150-400); RDW Coefficient Variation 17.5 % (11.7-14.2); RDW Standard Deviation 64.1 fL (35.1-46.3); Red Blood Cell Count 4.03 M/mm3 (3.80-5.20); White Blood Cell Count 10.68 K/mm3 (4.00-11.30)
[2023-08-31] MEDS ORDERED: Omeprazole 20 MG CapCR PO SCH (06:00)
[2023-08-31 06:11] LABS: Albumin, Blood 2.4 g/dL (3.4-5.0); Albumin/Globulin Ratio 0.7 (0.8-1.8); Bilirubin, Total 2.1 mg/dL (0.1-1.0); Bun/Creatinine Ratio 48.7 (12.0-20.0); Calcium, Blood 8.8 mg/dL (8.5-10.1); Creatinine, Blood 0.97 mg/dL (0.40-1.00); Globulin, Blood 3.4 g/dL (2.2-4.0); Magnesium, Blood 2.5 mg/dL (1.6-2.4); Potassium, Blood 4.5 mmol/L (3.5-5.5); Total Protein, Blood 5.8 g/dL (6.4-8.2)
[2023-08-31 06:12] LABS: BASOPHILS PERCENT MAN 0 % (0-2); EOSINOPHILS PERCENT MAN 0 % (0-6); LYMPHOCYTES PERCENT MAN 1 % (21-46); MONOCYTES PERCENT MAN 1 % (4-13); NEUTROPHILS ABSOLUTE MAN 10.46 K/mm3 (1.96-9.15); SEG NEUTROPHILS PERCENT MAN 98 % (41-73); TOTAL CELLS COUNTED 100
[2023-08-31] MEDS ORDERED: Insulin Human Lispro 100 Units/ML 3ML Syringe SC SCH (07:30)
[2023-08-31 07:33] VITALS: BP 154/64
[2023-08-31] MEDS ORDERED: HYDROmorphone HCl 2 MG Tab PO PRN (09:35)
[2023-08-31] MEDS ORDERED: dexAMETHasone 4 MG TAB PO SCH ×2 (13:00)
[2023-08-31 15:56] VITALS: BP 142/74
--- NOTE | 2023-08-31 18:14 | NUR ---
SHIFT SUMMARY PT AOX3-4, BEDREST AT THIS TIME. MEDICATED FOR PAIN, NAUSEA THIS SHIFT. FAMILY AT THE BS ALL SHIFT. APPETITE LOW. BRIEF CHANGED NEEDED. NO OTHER ACUTE CHANGES. CALL LIGHT WITHIN REACH, BED IN THE LOWEST POSITION. WILL REPORT TO ONCOMING NURSE.
[2023-08-31 19:57] VITALS: BP 168/72
[2023-09-01] MEDS ORDERED: HydrALAZINE HCl 20 MG / ML 1ML Vial IV PRN (00:35)
[2023-09-01 04:02] VITALS: BP 166/77
[2023-09-01 06:21] LABS: Hemoglobin 14.1 g/dL (11.5-16.0); Mean Corpuscular HGB 33.1 pg (26.0-34.0); Mean Corpuscular HGB Conc 32.8 g/dL (31.5-36.5); Mean Corpuscular Volume 101 fL (80-100); Platelet Count 67 K/mm3 (150-400); RDW Coefficient Variation 17.4 % (11.7-14.2); RDW Standard Deviation 65.6 fL (35.1-46.3); Red Blood Cell Count 4.26 M/mm3 (3.80-5.20); White Blood Cell Count 12.63 K/mm3 (4.00-11.30)
[2023-09-01 06:22] LABS: Albumin, Blood 2.5 g/dL (3.4-5.0); Albumin/Globulin Ratio 0.7 (0.8-1.8); Bilirubin, Total 2.6 mg/dL (0.1-1.0); Bun/Creatinine Ratio 48.1 (12.0-20.0); Calcium, Blood 8.9 mg/dL (8.5-10.1); Creatinine, Blood 0.83 mg/dL (0.40-1.00); Globulin, Blood 3.5 g/dL (2.2-4.0); Potassium, Blood 4.7 mmol/L (3.5-5.5)
--- NOTE | 2023-09-01 06:30 | NUR ---
Shift Summary Pt AOx1-2, lethargic and somnolent all shift. She did not void or have a BM this shift, I did a bladder scan this AM and it showed 471. Per bladder blair protocol I did a straight cath which is draining urine now, will send sample to lab. We attempted to pivot transfer pt to the toilet but she was too lethargic and unable to fully wake, because of weakness and lethargy ambulation was not safe this AM. Her BP was elevated last night, 166/72, called hospitalist who ordered scheduled Cozaar and PRN hydralazine for systolic > 170. Pt stated no pain t/o the night. She is rcving NS @ 75.
[2023-09-01 07:20] LABS: U Amphetamine Screen Not Detected; U Barbituate Screen Not Detected; U Benzodiazapine Screen DETECTED; U Buprenorphine Screen Not Detected; U Cannabinoids Screen Not Detected; U Cocaine Screen Not Detected; U Methadone Screen Not Detected; U Methamphetamine Screen Not Detected; U Opiates Screen DETECTED; U Oxycodone Screen Not Detected; U Phencyclidine Screen Not Detected
[2023-09-01 07:31] VITALS: BP 175/76
[2023-09-01] MEDS ORDERED: Losartan Potassium 25 MG Tab PO SCH (09:00)
--- NOTE | 2023-09-01 15:09 | NUR ---
Goals of Care Assessment with patient and family Met with pt, Diane "Hanny", Solo, daughter Halina and sister in-law Ana in pt's room. Hanny rouses to her name. She's slow to respond and replies with 1 word answers. Hanny does not want to have CPR. Solo and Halina report, Hanny would want comfort measures only. 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 Family reports: 3 months ago pt was A/O X4, driving, independent for all ADL's. She started have 8/10 unxplained headaches. 1 month ago: A/O x4, needing assistance with showers, SBA for ambulation d/t dizziness, extream fatigue and decreasing oral intake. Increase in hospital visits. Seen in [facility] ER 08-07-23. Family reports being encouraged to take pt to [facility] ER. Subssequently she was admitted to [facility] for 6 days. Current: She is unable to ambulate (very weak), dizziness, poor oral intake, constant severe headaches, nausea. Transitioning to comfort care with plan to d/c home with hospice. This PC RN provided education books: Gone From My Sight and [facility]. Also gave a list of homes per family request. Phoned [facility], spoke with Kendra to notify Dr. Mas of pt's request for hospice. Additional call to Dr. Sparks's office for the same. Received orders from Dr. Patricio for comfort care. Orders placed accordingly. Notified CM of family request to d/c home with hospice. PC will remain available.
[2023-09-01] MEDS ORDERED: Morphine Sulfate 20 MG/1ML 1 ML Oral Syringe SL PRN (16:10)
[2023-09-01] MEDS ORDERED: Promethazine HCl 25 MG Supp PR PRN (16:10)
[2023-09-01] MEDS ORDERED: Atropine Sulfate 1% Opth Soln 2ML BTL SL PRN (16:10)
[2023-09-01] MEDS ORDERED: Scopolamine Hydrobromide Patch TOP PRN (16:10)
[2023-09-01] MEDS ORDERED: LORazepam 1 MG Tab PO PRN (16:10)
[2023-09-01] MEDS ORDERED: Acetaminophen 650 MG Supp PR PRN (16:10)
[2023-09-01 17:07] LABS: Source, Urine Foley catheter
[2023-09-01 17:18] LABS: Appearance, Urine Clear (Clear); Bilirubin, Urine Neg (Neg); Blood, Urine 2+ (Neg); Color, Urine Yellow (P-Yellow); Glucose Qualitative, Urine Neg (Neg); Ketones, Urine 2+ (Neg); Leukocyte Esterase, Urine 1+ (Neg); Nitrite, Urine Neg (Neg); Protein, Urine 2+ (Neg); Urobilinogen, Urine NORM (Normal)
[2023-09-01 17:31] LABS: Bacteria Mod /hpf; Squamous Epithelial Cells Few /hpf (Few)
--- NOTE | 2023-09-01 19:08 | NUR ---
SHIFT SUMMARY: PATIENT A/O TO SELF, PLACED AND FAMILY AT BEDSIDE T/O SHIFT. PATIENT REPORTS PAIN TO NECK AND HEADACHE, MEDICATED c PRN PAIN MEDS PER ORDER c GOOD EFFECT. DAUGHTER JUSTIN AT BEDSIDE EXPRESSESS TO THIS RN THAT SHE WANTS PATIENT TO BE COMFORTABLE AND NO MORE INTERVENTION. THIS RN SPOKE TO PALLIATIVE CARE RN, JAYLIN AND DR. DEMETRIA BUSH (JUSTIN) REQUEST. PATIENT PLACED ON COMFORT CARE THIS PM. CHERRY PLACED FOR COMFORT, PATENT DRAINING YELLOW COLOR c 200 MLS TOTAL URINE OUTPUT THIS SHIFT. PATIENT RECEIVED BEDBATH AND LINEN CHANGED TODAY. PATIENT HAS OPEN SORE TO L BREAST, MIPELEX DRESSING PLACED. BED ALARM ON FOR SAFETY. CALL LIGHT IN REACH.
--- NOTE | 2023-09-02 06:31 | NUR ---
Shift Summary Family in the room at the start of the shift. Pt was showing anxiety, yelling for us to 'let her up'. She was not redirectable and not able to say more than that. I medicated her for anxiety with 2 mg PO Ativan, and then 10 mg Roxinol 30 minutes later as the family was concerned she was in pain. She slept comfortably t/o the night. This morning she is making a small amount of occasional noise. She is mostly unresponsive but I was able to ask her if she was in pain or uncomfortable and she stated she is not in pain. She is currently sleeping comfortably in bed. Very low urine output this shift, less than 200 mL. PO intake has been very poor, she did eat some apple sauce at the start of the shift.
--- NOTE | 2023-09-02 17:06 | NUR ---
SHIFT SUMMARY: PATIENT ON COMFORT CARE MEASURES. PATIENT RESPONDS TO PAIN AND REPOSITIONING, OTHERWISE RESTING IN BED c EYES CLOSED COMFORTABLY. PATIENT MEDICATED c PRN COMFORT CARE MEDS PER ORDER c GOOD EFFECT. PATIENT RR IS EVEN AND UNLABORED c NO SIGNS OF DISTRESS. PATIENT HAS CHERRY, PATENT AND DRAINING RAMIREZ COLOR URINE TO GRAVITY. PATIENT HAS NO PO INTAKE THIS SHIFT. PATIENT FAMILY AT BEDSIDE OFF/ON T/O SHIFT. PLAN TO D/C PATIENT c HOSPICE CARE THROUGH [employer], ADMINISTRATIVE COORDINATOR, GREG BOOKER-RN ALREADY ARRANGED EXPECTED MOBILE MANAGER TIME AT 1300 09/03/23. PATIENT SPOUSE AND DAUGHTER(JUSTIN) UPDATED c PLAN. PATIENT SPOUSE AND DAUGHTER VERBALIZED UNDERSTANDING AND NO FURTHER QUESTIONS AT THIS TIME. BED ALARM ON FOR SAFETY. CALL LIGHT IN REACH. WILL CONTINUE TO MONITOR PATIENT AND REPORT TO ONCOMING NOC RN.
--- NOTE | 2023-09-03 03:33 | NUR ---
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 WAS AT BEDSIDE FIRST F SHIFT BUT LEFT AND VOICED HE WOULD RETURN (TODAY). PT HAS RECEIVED PAIN MED ONCE OF THIS WRITING. RESTING QUIETLY WITH HOB ELEVATED, REPOSIIONED FOR COMFORT INTERMITTENTLY. RAILS UP X 3 FOR SAFETY. CALL LIGHT IN REACH.
[2023-09-03] MEDS ORDERED: MORP20L SL (09:20)
[2023-09-03] MEDS ORDERED: Ativan1 MG PO (09:23)
--- NOTE | 2023-09-03 09:52 | NUR ---
ASSESSMENT NOTE: AT 0930 PATIENT APPEARS TO BE IN PAIN c EVIDENCE FOREHEAD FROWNING AND MOANING SOUNDS. PATIENT MEDICATED c PRN COMFORT CARE MEDS PER ORDER AND REPOSITIONED TO L SIDE. A COUPLE OF MINUTES AFTER REPOSITIONING PATIENT RR APPEARS TO BE 8-12 BREATHS/ MINUTE, HAS EPISODE OF PAUSES AND AGONAL BREATHING. FAMILY AT BEDSIDE. NOTIFIED VASCULAR NEUROLOGIST, DIONICIO MARCOS AND DIRECTOR OF SPEECH PATHOLOGY, JUNIOR HO RN. WILL CONTINUE TO MONITOR PATIENT AND PROVIDE SUPPORT TO FAMILY AT BEDSIDE.
--- NOTE | 2023-09-03 11:04 | NUR ---
Case Conference: Pt is actively dying, with several family members present and attentive. The bedside RN reports change in pt condition this morning, from transitioning to actively dying. Upon assessment, note the patient's eyes have become fixed and dilated. She does not appear to be in any distress, but family state concern with "gurgling" sounds. Education provided regarding the normal changes that can occur, including loss of ability to swallow, and reassurance given regarding use of scopalamine patch and roxanol for air hunger. The patient is showing no s/s of distress, with no furrowing of her brows or other indications of discomfort. Family state their appreciation for the reassurance, and plan to remain at the bedside. They have requested we don't attempt to transport patient home on hospice. Bedside RN, charge nurse and palliative care agree due to this change in condition.
--- NOTE | 2023-09-03 11:25 | NUR ---
Spiritual care visit conducted. Patient is lying in bed and family is bedside and is tearful. I provide encouragement, and prayer. Patient and family showed signs of being comforted.
--- NOTE | 2023-09-03 13:59 | NUR ---
Family have chosen [facility] in [place], [place] as the mortuary of choice when the patient expires.
--- NOTE | 2023-09-03 18:15 | NUR ---
SHIFT SUMMARY: PATIENT STILL ON COMFORT CARE MEASURE. PATIENT DISCHARGED WAS CANCELLED TODAY D/T CHANGES IN CONDITION. PATIENT BREATHING PATTERN CHANGED AT AROUND 0930'S. PATIENT HAS SOME PAUSES, AGONAL, AND GURGLING SOUND BREATHING. T/O SHIFT. PATIENT IS OBTUNDED, MODELING SKIN TO FACE, LEGS AND BLUISH DISCOLORATION TO FINGERS. PATIENT MEDICATED c PRN COMFORT CARE MEDS AND REPOSITIONED T/O SHIFT. PATIENT AND FAMILY AT BEDSIDE HAD A VIST FROM TEVIN (PASTORAL CARE) AND JAYMIE PALLIATIVE CARE RN THIS AM. PATIENT FAMILY WAS APPRECIATIVE c THE VISITS. FAMILY AT BEDSIDE OFF/ON T/O SHIFT. WILL CONTINUE TO MONITOR PATIENT CONDITION AND PROVIDE EMOTIONAL SUPPORT TO FAMILY AT BEDSIDE.
--- NOTE | 2023-09-03 19:45 | NUR ---
FAMILY ALERTED THIS RN THAT THEY SUSPECTED PT HAD TAKEN HER LAST BREATH. AUSCULTATED FOR HEART TONES, NONE HEARD. NO BREATHS, NO CHEST RISE. CONFIRMED WITH SECOND RN. WILL NOTIFY ON-CALL HOSPITALIST.
== END 2023-09-03 19:45 | DRG 54 ==
LOC: ER 12:35 → ERHOLD 12:36 → MEDS 12:36 → ENPENDDIS 09-03 11:53 → MEDS 09-03 19:45
PROVIDERS: Internal Medicine; Nurse Practitioner Acute Care; Physician Assistant; Student in an Organized Health Care Education/Training Program; ADMIT Student in an Organized Health Care Education/Training Program
DX: C79.31 Secondary malignant neoplasm of brain (principal); G92.8 Other toxic encephalopathy; C77.0 Secondary and unspecified malignant neoplasm of lymph nodes of head, face and neck; C79.89 Secondary malignant neoplasm of other specified sites; N17.9 Acute kidney failure, unspecified; E87.1 Hypo-osmolality and hyponatremia; K76.6 Portal hypertension; Q23.1 Congenital insufficiency of aortic valve; E44.0 Moderate protein-calorie malnutrition; C78.00 Secondary malignant neoplasm of unspecified lung; Z51.5 Encounter for palliative care; Z66 Do not resuscitate; R59.0 Localized enlarged lymph nodes; K76.82 Hepatic encephalopathy; E86.0 Dehydration; K75.81 Nonalcoholic steatohepatitis (NASH); D69.59 Other secondary thrombocytopenia; E66.9 Obesity, unspecified; G47.33 Obstructive sleep apnea (adult) (pediatric); K21.9 Gastro-esophageal reflux disease without esophagitis; E11.9 Type 2 diabetes mellitus without complications; Z85.3 Personal history of malignant neoplasm of breast; Z90.13 Acquired absence of bilateral breasts and nipples; Z68.28 Body mass index [BMI] 28.0-28.9, adult; Z11.52 Encounter for screening for COVID-19
CPT/HCPCS: 0241U; 36415; 51701; 70450; 70460; 71045; 80053; 81001; 82140; 82803; 82947; 83735; 83880; 85025; 85027; 85610; 87077; 87086; 87186; 96361; 96365-59; 96375; 99285-25; A9270; G0378; J1100; J1200; J2270; J2405; J2765; J7030; Q9967